=== PATIENT | female | born 1995 | race Caucasian/White ===

== ENCOUNTER → 2024-03-22 | Outpatient (CLI) | payer OTHER, BC, SELFPAY ==
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
--- NOTE | 2024-03-22 13:05 | RAD_ITS ---
STUDY: X-RAY - CERVICAL SPINE REASON FOR EXAM: Female, 28 years old. PAIN TECHNIQUE: 4 view(s) of the cervical spine were obtained. COMPARISON: None FINDINGS: Normal anterior atlantoaxial articulation. Normal odontoid process. Normal cervical lordosis. Normal vertebral bodies and endplates. Normal disc space heights. Demonstrated fracture or compression is noted. The soft tissue structures are unremarkable. There is no demonstrated fracture of the cervical spine. RAD/Cerv Spine 2 or 3 Views IMPRESSION: Normal x-ray examination of the visualized cervical spine. Electronically Signed: Nickolas Locke MD at 14:33 EST ,
== END | disposition home or self-care (01) ==
LOC: RAD 13:02
PROVIDERS: Visit Provider Nurse Practitioner Family
DX: Z04.2 Encounter for examination and observation following work accident (principal); S13.4XXA Sprain of ligaments of cervical spine, initial encounter; S43.402A Unspecified sprain of left shoulder joint, initial encounter; V89.9XXA Person injured in unspecified vehicle accident, initial encounter; Y99.0 Civilian activity done for income or pay
CPT/HCPCS: 72040; 73030